=== PATIENT | female | born 1960 | race African-American/Black ===

== ENCOUNTER 2018-06-08 20:33 | Emergency (ER) | payer MEDICARE ==
[~2018-06-08] VITALS: Ht 182.9 cm; Wt 115.0 kg
[~2018-06-08 20:33] MED LIST: ATENOLOL25 M1 PO; FLEXERIL10 MG PO; HYDRODIURIL,ORE50 MG PO; MOTRIN600 MG PO; MOTRIN800 MG PO; TENORMIN25 MG PO; VITAMIN D400 UNIT PO
[2018-06-08] MEDS ORDERED: LIDODERM 5% P1 PATCH TD (22:06)
[2018-06-08] MEDS ORDERED: MEDROL DOSEPAK4 MG PO (22:06)
[2018-06-08 22:52] VITALS: BP 132/85
== END 2018-06-08 22:52 | disposition home or self-care (01) ==
LOC: RME 20:33 → EME 20:33 → RME 22:52
DX: M54.2 Cervicalgia (principal); M25.521 Pain in right elbow; R20.0 Anesthesia of skin; I10 Essential (primary) hypertension; Z88.6 Allergy status to analgesic agent; Z91.013 Allergy to seafood
CPT/HCPCS: 72040; 99281; 99284